=== PATIENT | female | born 1930 | race Caucasian/White ===

== ENCOUNTER 2017-04-01 09:48 | Inpatient (IN) | payer MEDICARE ==
[2017-04-01] VITALS (7 sets, daily range): BP systolic 158–174; BP diastolic 65–94; PULSE 56–67; RESP 16–18; TEMP 97.8–98.4; O2SAT 93–98
[~2017-04-01] VITALS: Ht 149.9 cm; Wt 67.5 kg
[~2017-04-01 09:48] MED LIST: ALBU17I INH; ALPR.25 PO; AMLO10 PO; ASPI81 PO; ATEN50 PO; ATRO17AE INH; CALC600T34 PO; CITA40 PO; CO Q 10 PO; FISH1000 PO; FLUTI110I INH; LORTA5 PO; LOSA50 PO; MECL25 PO; OMEP20TA39 PO; PRAV40 PO; TAB-TAB PO; VITA100T15 PO
[2017-04-01] MEDS ORDERED: OMEGCAP PO (10:26)
[2017-04-01] MEDS ORDERED: PRAV40TA2 PO (10:26)
[2017-04-01] MEDS ORDERED: ATEN50TA PO (10:26)
[2017-04-01] MEDS ORDERED: LOSA50TA PO (10:26)
[2017-04-01] MEDS ORDERED: MULTTAB67 PO (10:26)
[2017-04-01] MEDS ORDERED: VITA10002 PO (10:26)
[2017-04-01] MEDS ORDERED: CALC1TAB87 PO (10:26)
[2017-04-01] MEDS ORDERED: ASPI-516 CHEW (10:26)
[2017-04-01] MEDS ORDERED: AMLO10TA2 PO (10:26)
[2017-04-01] MEDS ORDERED: CO Q 10 PO (10:26)
[2017-04-01] MEDS ORDERED: ONDANSETRON HCL 4 MG/2 ML VIAL IVP ONE (10:45)
[2017-04-01 11:08] LABS: AUTOMATED NEUTROPHIL # 11.5 TH/MM3 (1.8-7.7); BASOPHIL # 0.1 TH/MM3 (0-0.2); BASOPHIL % 0.9 % (0.0-2.0); EOSINOPHIL # 0.1 TH/MM3 (0-0.4); EOSINOPHIL % 0.9 % (0.0-4.0); HEMATOCRIT 39.7 % (35.0-46.0); HEMO FLAGS DIFF FINAL; LYMPH % 16.7 % (9.0-44.0); LYMPHOCYTE # 2.5 TH/MM3 (1.0-4.8); MEAN CELL VOLUME 84.2 FL (80.0-100.0); MEAN CORPUSCULAR HGB CONC 33.3 % (32.0-36.0); MONO % 5.8 % (0.0-8.0); NEUT % 75.7 % (16.0-70.0); PLATELET COUNT 377 TH/MM3 (150-450); RED BLOOD COUNT 4.71 MIL/MM3 (4.00-5.30); RED CELL DISTRIBUTION WIDTH 12.7 % (11.6-17.2); WHITE BLOOD COUNT 15.1 TH/MM3 (4.0-11.0)
[2017-04-01 11:14] LABS: CHLORIDE 102 MEQ/L (98-107); SODIUM (NA) 138 MEQ/L (136-145)
[2017-04-01 11:15] LABS: BLOOD, URINE NEG (NEG); GLUCOSE,URINE NEG (NEG); KETONE, URINE NEG (NEG); NITRITE,URINE NEG (NEG)
--- NOTE | 2017-04-01 11:15 | PD ---
HPI Chief Complaint: GI Complaint Time Seen by Provider: 10:38 Travel History International Travel<30 days: No Contact w/Intl Traveler<30days: No Traveled to known affect area: No History of Present Illness HPI patient presents with complaints of right upper quadrant abdominal discomfort, nausea and lower back pain since approximately 3:30 this morning. Denies vomiting. Reports normal urination and stools. Back pain is chronic. Denies any recent travel or sick contacts. Denies any new foods. Reports a workup approximate one week ago with suspected UTI versus diverticulitis. Patient started medication however stopped it when she started to feel nauseous. These are similar symptoms to a week ago. PFSH Past Medical History Arthritis: Yes Asthma: No Autoimmune Disease: No Anxiety: Yes (takes celexa) Depression: No Heart Rhythm Problems: No Cancer: No Cardiovascular Problems: Yes High Cholesterol: Yes Chest Pain: No Congestive Heart Failure: No COPD: Yes Cerebrovascular Accident: No Diabetes: No Diminished Hearing: No Endocrine: No Gastrointestinal Disorders: Yes (HX OF COLITIS) GERD: No Glaucoma: No Genitourinary: No Hepatitis: No Hiatal Hernia: Yes (GERD) Hypertension: Yes Immune Disorder: No Kidney Stones: No Musculoskeletal: No Neurologic: No Psychiatric: No Reproductive: No Respiratory: No Migraines: No Myocardial Infarction: No Renal Failure: No Sleep Apnea: Yes Thyroid Disease: No Ulcer: No Influenza Vaccination: Yes ?: Not Past Surgical History Abdominal Surgery: No AICD: No Arteriovenous Shunt: No Cardiac Surgery: No Coronary Artery Bypass Graft: No Coronary Stent: Yes (1998--"THREE STENTS") Ear Surgery: No Endocrine Surgery: No Eye Surgery: Yes (CATARACT RIGHT and LEFT EYE) Genitourinary Surgery: Yes (BLADDER SUSP.) Gynecologic Surgery: Yes (TAHBSO, D & C) Hysterectomy: Yes (1993--COMPLETE) Insulin Pump: No Joint Replacement: No Oral Surgery: Yes (T & A) Pacemaker: No Thoracic Surgery: No Tonsillectomy: Yes (" CHILD") Other Surgery: Yes ("D & C,IN THE 50'S") Family History Family Myocardial Infarction: Yes Social History Alcohol Use: Yes (RARELY) Tobacco Use: No Substance Use: No Allergies-Medications (Allergen,Severity, Reaction): Coded Allergies: No Known Allergies (Verified Allergy, Unknown, 04/01/17) Reported Meds & Prescriptions Reported Meds & Active Scripts Active Reported [Co Q 10] 1 Tab PO DAILY Pravastatin 40 Mg Tab 40 Mg PO DAILY [place]-3 Fish Oil/Vitamin (Fish Oil-Cholecalciferol) 1,000-1,000 Mg Cap 1 Cap PO DAILY Multiple Vitamin 1 Tab 1 Tab PO DAILY Losartan (Losartan Potassium) 50 Mg Tab 50 Mg PO BID Vitamin B-12 (Cyanocobalamin) 1,000 Mcg Tab 1,000 Mcg PO DAILY Calcium 600 with Vitamin D (Calcium Carbonate-Cholecalciferol) 600-400 mg-Unit Tab 1 Tab PO DAILY Atenolol 50 Mg Tab 50 Mg PO DAILY Aspirin 81 Mg Chew 81 Mg CHEW DAILY Amlodipine (Amlodipine Besylate) 10 Mg Tab 10 Mg PO DAILY Review of Systems General / Constitutional: No: Fever Eyes: No: Visual changes HENT: No: Headaches Cardiovascular: No: Chest Pain or Discomfort Respiratory: No: Shortness of Breath Gastrointestinal: Positive: Nausea, Abdominal Pain Genitourinary: No: Dysuria Musculoskeletal: Positive: Pain Skin: No Rash Neurologic: No: Weakness Psychiatric: No: Depression Endocrine: No: Polydipsia Hematologic/Lymphatic: No: Easy Bruising Physical Exam Narrative GENERAL: Well-nourished, well-developed patient. SKIN: Focused skin assessment warm/dry. HEAD: Normocephalic. EYES: No scleral icterus. No injection or drainage. NECK: Supple, trachea midline. No JVD or lymphadenopathy. CARDIOVASCULAR: Regular rate and rhythm without murmurs, gallops, or rubs. RESPIRATORY: Breath sounds equal bilaterally. No accessory muscle use. GASTROINTESTINAL: Abdomen soft, diffusely tender right upper quadrant, nondistended. MUSCULOSKELETAL: No cyanosis, or edema. BACK: Nontender without obvious deformity. No CVA tenderness. Data Data Last Documented VS Vital Signs Date Time Temp Pulse Resp B/P (MAP) Pulse Ox O2 Delivery O2 Flow Rate FiO2 04/01/17 12:47 58 18 174/65 (101) 98 Room Air 04/01/17 09:56 97.9 Orders Orders Complete Blood Count With Diff (04/01/17 10:38) Comprehensive Metabolic Panel (04/01/17 10:38) Lipase (04/01/17 10:38) Urinalysis - C+S If Indicated (04/01/17 10:38) Ct Abd/Pel W Iv Contrast(Rout) (04/01/17 10:38) Iv Access Insert/Monitor (04/01/17 10:38) Ecg Monitoring (04/01/17 10:38) Oximetry (04/01/17 10:38) Ondansetron Inj (Zofran Inj) (04/01/17 10:45) Sodium Chloride 0.9% Flush (Ns Flush) (04/01/17 10:45) Urine Culture (04/01/17 11:05) Hydromorphone Pf Inj (Dilaudid Pf Inj) (04/01/17 12:00) Ondansetron Inj (Zofran Inj) (04/01/17 12:00) Iodixanol 320 Inj (Rad Ct) (Visipaque 32 (04/01/17 12:16) Hydromorphone Pf Inj (Dilaudid Pf Inj) (04/01/17 13:00) Hydromorphone Pf Inj (Dilaudid Pf Inj) (04/01/17 13:00) Npo After Midnight W/ Po Meds (04/01/17 Lunch) Labs Laboratory Tests Test 04/01/17 10:35 04/01/17 11:05 White Blood Count 15.1 TH/MM3 Red Blood Count 4.71 MIL/MM3 Hemoglobin 13.2 GM/DL Hematocrit 39.7 % Mean Corpuscular Volume 84.2 FL Mean Corpuscular Hemoglobin 28.0 PG Mean Corpuscular Hemoglobin Concent 33.3 % Red Cell Distribution Width 12.7 % Platelet Count 377 TH/MM3 Mean Platelet Volume 9.3 FL Neutrophils (%) (Auto) 75.7 % Lymphocytes (%) (Auto) 16.7 % Monocytes (%) (Auto) 5.8 % Eosinophils (%) (Auto) 0.9 % Basophils (%) (Auto) 0.9 % Neutrophils # (Auto) 11.5 TH/MM3 Lymphocytes # (Auto) 2.5 TH/MM3 Monocytes # (Auto) 0.9 TH/MM3 Eosinophils # (Auto) 0.1 TH/MM3 Basophils # (Auto) 0.1 TH/MM3 CBC Comment DIFF FINAL Differential Comment Blood Urea Nitrogen 28 MG/DL Creatinine 1.50 MG/DL Random Glucose 121 MG/DL Total Protein 8.3 GM/DL Albumin 3.4 GM/DL Calcium Level 9.3 MG/DL Alkaline Phosphatase 82 U/L Aspartate Amino Transf (AST/SGOT) 24 U/L Alanine Aminotransferase (ALT/SGPT) 22 U/L Total Bilirubin 0.5 MG/DL Sodium Level 138 MEQ/L Potassium Level 4.4 MEQ/L Chloride Level 102 MEQ/L Carbon Dioxide Level 25.7 MEQ/L Anion Gap 10 MEQ/L Estimat Glomerular Filtration Rate 33 ML/MIN Lipase 327 U/L Urine Collection Type CLEAN CATCH Urine Color YELLOW Urine Turbidity CLEAR Urine pH 6.0 Urine Specific [place] 1.016 Urine Protein TRACE mg/dL Urine Glucose (UA) NEG mg/dL Urine Ketones NEG mg/dL Urine Occult Blood NEG Urine Nitrite NEG Urine Bilirubin NEG Urine Leukocyte Esterase TRACE Urine RBC 0-3 /hpf Urine WBC 9-14 /hpf Urine Squamous Epithelial Cells 0-5 /hpf Microscopic Urinalysis Comment CULTURE INDICATED MDM Medical Decision Making Medical Screen Exam Complete: Yes Emergency Medical Condition: Yes Differential Diagnosis UTI, cystitis, nephritis, colitis, chronic back pain Narrative Course Last 72 hours Impressions Abdomen/Pelvis CT 04/01/17 1038 Signed Impressions: Service Date/Time: Saturday, April 01, 2017 12:10 - CONCLUSION: 1. 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 The latter causes high grade obstruction. 2. Tiny nonobstructing stone of the left kidney. 3. Scattered subcentimeter faint hypodensities of the liver, too small to fully characterize. 4. The fat-containing bilateral inguinal hernias. 5. Atherosclerosis of the abdominal aorta and iliac arteries. No aneurysm. Binu Clark MD Assessment and plan discussed with patient and daughter at bedside. Physician Communication Physician Communication Spoke with Dr. Dejesus/urology who is in agreement for admission and possible procedure tomorrow at the [facility] Spoke with Dr. Villalba who plans on seeing the patient prior to transfer to the [facility] Spoke with Dr. Ling who is in agreement will admit Diagnosis Primary Impression: Intractable pain Additional Impressions: Hydroureter Hydronephrosis Qualified Codes: N13.1 - Hydronephrosis with ureteral stricture, not elsewhere classified Bladder mass Ureteral mass Dave Prado MD Apr 01, 2017 11:15
[2017-04-01 11:17] LABS: ANION GAP 10 MEQ/L (5-15); BICARBONATE 25.7 MEQ/L (21.0-32.0); BLOOD UREA NITROGEN 28 MG/DL (7-18)
[2017-04-01 11:20] LABS: ALT (GPT) 22 U/L (10-53); AST (GOT) 24 U/L (15-37); GLOMERULAR FILTRATION RATE 33 ML/MIN (>89)
[2017-04-01 11:20] LABS: METHOD OF COLLECTION CLEAN CATCH
[2017-04-01 11:21] LABS: URINE COLOR YELLOW (YELLW/STRAW)
[2017-04-01 11:22] LABS: TOTAL BILIRUBIN ADULT 0.5 MG/DL (0.2-1.0)
[2017-04-01 11:22] LABS: COMMENT (UR) CULTURE INDICATED; CULTURE IF INDICATED CULTURE INDICATED; RBC, URINE 0-3 /hpf (0-3); SQUAMOUS EPITHELIAL CELL URINE 0-5 /hpf (0-5)
[2017-04-01 11:23] LABS: ALKALINE PHOSPHATASE 82 U/L (45-117)
[2017-04-01 11:25] LABS: POTASSIUM 4.4 MEQ/L (3.5-5.1)
[2017-04-01] MEDS ORDERED: HYDROmorphone HCL PF 0.5 MG/0.5 ML SYRINGE IV PUSH ONE (12:00)
[2017-04-01] MEDS ORDERED: ONDANSETRON HCL 4 MG/2 ML VIAL IV PUSH ONE (12:00)
[2017-04-01] MEDS ORDERED: IODIXANOL 320 MG/ML 10 ML VIAL (for Rad CT) IVCONTRAST ONE (12:16)
--- NOTE | 2017-04-01 12:34 | RADRPT ---
EXAM DATE/TIME: 04/01/2017 12:10 [place] COMPARISON: No previous studies available for comparison. INDICATIONS : Right sided abdominal pain with nausea. IV CONTRAST: 50 cc Visipaque (iodixanol) IV ORAL CONTRAST: No oral contrast ingested. RADIATION DOSE: 10.74 CTDIvol (mGy) MEDICAL HISTORY : Cardiovascular disease. Gastroesophageal reflux disease. Hypertension.Colitis. SURGICAL HISTORY : Hysterectomy. Coronary artery stent. ENCOUNTER: Initial ACUITY: 3 days PAIN SCALE: 5/10 LOCATION: Right abdomen TECHNIQUE: Volumetric scanning of the abdomen and pelvis was performed. Using automated exposure control and ad justment of the mA and/or kV according to patient size, radiation dose was kept as low as reasonably achievable to obtain optimal diagnostic quality images. DICOM format image data is available electro nically for review and comparison. FINDINGS: LOWER LUNGS: The visualized lower lungs are clear. LIVER: Faint tiny hypodensities measuring up to 6 mm in size are noted. SPLEEN: Normal size without lesion. PANCREAS: Within normal limits. KIDNEYS: There is intermediate density mass filling the distal 5 cm of the ureter, sparing the ureterovesical junction. A separate mass is seen in the anterior aspect of the urinary bladder measuring 2.9 cm. The re is severe right-sided hydronephrosis and hydroureter. A 2 mm nonobstructing stone is seen of the m id zone of the left kidney. There is no hydronephrosis, hydroureter or perceptible urothelial lesion on the left. ADRENAL GLANDS: Within normal limits. VASCULAR: There is aortoiliac atherosclerosis. No aneurysm. BOWEL/MESENTERY: The stomach, small bowel, and colon demonstrate no acute abnormality. There is no free intraperitone al air or fluid. ABDOMINAL WALL: Within normal limits. RETROPERITONEUM: There is no lymphadenopathy. BLADDER: No wall thickening or mass. REPRODUCTIVE: Previous hysterectomy. INGUINAL: Bilateral fat-containing inguinal hernias are present. MUSCULOSKELETAL: Within normal limits for patient age. CONCLUSION: 1. 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 The latt er causes high grade obstruction. 2. Tiny nonobstructing stone of the left kidney. 3. Scattered subcentimeter faint hypodensities of the liver, too small to fully characterize. 4. The fat-containing bilateral inguinal hernias. 5. Atherosclerosis of the abdominal aorta and iliac arteries. No aneurysm. Binu Clark MD on April 01, 2017 at 12:27 Board Certified Radiologist. This report was verified electronically.
[2017-04-01] MEDS ORDERED: HYDROmorphone HCL PF 2 MG/ML VIAL IV PUSH ONE (13:00)
[2017-04-01] MEDS ORDERED: HYDROmorphone HCL PF 1 MG/ML VIAL IV PUSH ONE (13:00)
[2017-04-01] MEDS ORDERED: ACETAMINOPHEN 325 MG TAB PO PRN (13:45)
[2017-04-01] MEDS ORDERED: ONDANSETRON HCL 4 MG/2 ML VIAL IV PUSH PRN ×2 (13:45→14:00)
--- NOTE | 2017-04-01 13:49 | HHI.HP ---
HPI Service [facility] Primary Care Physician Madhu Villalba MD, PhD Admission Diagnosis intractable pain with multifocal urothelial neoplasm Chief Complaint: Abd pain, nausea, lower back pain Travel History International Travel<30 Days: No Contact w/Intl Traveler <30 Da: No Traveled to Known Affected Are: No History of Present Illness 87 year-old female well-known to me from outpatient follow-up who has history of hypertension hyperlipidemia, major depression, anxiety and distant history of recurrent UTIs presents with right flank and right lower abdominal pain with radiation to her right lower back. Patient reports she's had chronic low back pain for years but the abdominal pain onset was around 4 or 5 AM this morning. She noted a cramping sensation. She had several episodes of dry heaving but no vomiting. She denies hematochezia or melena. Denies any diarrhea. She notes that she does have urinary frequency which is not uncommon for her. CT scan abdomen and pelvis revealed distant right ureteral mass with some resultant hydronephrosis. It is noted that she had negative cystoscopy and cytology per outpatient urology note back in 2011 as a part of workup for recurrent UTIs. She denies any indira hematuria. She also had CT abdomen and pelvis done in 2014 which was negative for any abnormality. Also noted that patient was seen in outpatient clinic March 19 and diagnosed with possible diverticulitis. She was placed on Augmentin but only took 4 doses due to "medicine upsetting her stomach". The pain resolved after the 4 doses of antibiotic. ER physician has communicated with the urologist site promotion agent who requested patient be transferred to the main hospital for planned procedure tomorrow morning. Review of Systems Constitutional: COMPLAINS OF: Fatigue, DENIES: Diaphoretic episodes, Fever, Weight gain, Weight loss, Chills, Dizziness, Change in appetite, Night Sweats Eyes: DENIES: Blurred vision, Diplopia, Eye inflammation, Eye pain, Vision loss , Photosensitivity, Double Vision Ears, nose, mouth, throat: COMPLAINS OF: Hearing loss, DENIES: Tinnitus, Vertigo, Nasal discharge, Oral lesions, Throat pain, Hoarseness, Ear Pain, Running Nose, Epistaxis, Sinus Pain, Toothache, Odynophagia Respiratory: DENIES: Apneas, Cough, Snoring, Wheezing, Hemoptysis, Sputum production, Shortness of breath Cardiovascular: DENIES: Chest pain, Palpitations, Syncope, Dyspnea on Exertion , PND, Lower Extremity Edema, Orthopnea, Claudication Gastrointestinal: COMPLAINS OF: Abdominal pain, GERD, Nausea, DENIES: Black stools, Bloody stools, BRB per rectum, Constipation, Diarrhea, Reflux, Vomiting , Difficulty Swallowing, Anorexia, See HPI Musculoskeletal: COMPLAINS OF: Joint pain, Back pain Integumentary: DENIES: Abnormal pigmentation, Pruritus, Rash, Nail changes, Breast masses, Breast skin changes, Nipple discharge Hematologic/lymphatic: COMPLAINS OF: Bruising Immunologic/allergic: DENIES: Eczema, Urticaria Neurologic: DENIES: Abnormal gait, Headache, Localized weakness, Paresthesias, Seizures, Speech Problems, Tremor, Poor Balance Psychiatric: COMPLAINS OF: Anxiety, Depression, DENIES: Confusion, Mood changes , Hallucinations, Agitation, Suicidal Ideation, Homicidal Ideation, Delusions, History of Bipolar, History of Schizophrenia Past Family Social History Past Medical History Aortic atherosclerosis CAD COPD Lumbar DDD HTN HYperlipidemia GERD Purpura Major depression Anxiety Recurrent UTIs Past Surgical History Bladder suspension surgery 2002 Cataract surgery D&C LESI PTCA 1998 T&A KELLI 1998 Reported Medications Co Q 10 100mg 1 Tab PO DAILY [place]-3 Fish Oil/Vitamin (Fish Oil-Cholecalciferol) 1,000-1,000 Mg Cap 1 Cap PO DAILY Multiple Vitamin 1 Tab 1 Tab PO DAILY Losartan (Losartan Potassium) 50 Mg Tab 50 Mg PO daily Vitamin B-12 (Cyanocobalamin) 1,000 Mcg Tab 1,000 Mcg PO DAILY Calcium 600 with Vitamin D (Calcium Carbonate-Cholecalciferol) 600-400 mg-Unit Tab 1 Tab PO DAILY Atenolol 50 Mg Tab 50 Mg PO DAILY Aspirin 81 Mg Chew 81 Mg CHEW DAILY Amlodipine (Amlodipine Besylate) 10 Mg Tab 10 Mg PO DAILY Cranberry tablets 250mg two daily Memantine 10mg daily vit D 1000 units/d Allergies: Coded Allergies: No Known Allergies (Verified Allergy, Unknown, 04/01/17) Family History Mother had [place] Father had AAA Social History No tobacco since 1973, 1ppd or less for approximately 25 yrs prior Occasional EtOH Lives alone, , good family support in area Retired [employer] teacher Physical Exam Vital Signs Vital Signs Date Time Temp Pulse Resp B/P (MAP) Pulse Ox O2 Delivery O2 Flow Rate FiO2 04/01/17 12:47 58 18 174/65 (101) 98 Room Air 04/01/17 12:43 18 04/01/17 11:34 18 97 Room Air 04/01/17 09:56 97.9 56 16 159/94 (115) 96 Physical Exam GENERAL: This is a well-nourished, well-developed patient, in no apparent distress. Obese, SKIN: No rashes, ecchymoses or lesions. Cool and dry. HEAD: Atraumatic. Normocephalic. No temporal or scalp tenderness. EYES: Pupils equal round and reactive. Extraocular motions intact. No scleral icterus. No injection or drainage. ENT: Nose without bleeding, purulent drainage or septal hematoma. Airway patent. NECK: Trachea midline. No JVD or lymphadenopathy. Supple, nontender, no meningeal signs. CARDIOVASCULAR: Regular rate and rhythm without murmurs, gallops, or rubs. RESPIRATORY: Clear to auscultation. Breath sounds equal bilaterally. No wheezes , rales, or rhonchi. GASTROINTESTINAL: Abdomen soft, nondistended. Mild tenderness to palpation in the right lower quadrant and right flank. No hepato-splenomegaly, or palpable masses. No guarding. MUSCULOSKELETAL: Extremities without clubbing, cyanosis, or edema. No joint tenderness, effusion, or edema noted. No calf tenderness. NEUROLOGICAL: Awake and alert. Cranial nerves II through XII intact. Motor and sensory grossly within normal limits. Five out of 5 muscle strength in all muscle groups. Normal speech. Laboratory Laboratory Tests Test 04/01/17 10:35 04/01/17 11:05 White Blood Count 15.1 Red Blood Count 4.71 Hemoglobin 13.2 Hematocrit 39.7 Mean Corpuscular Volume 84.2 Mean Corpuscular Hemoglobin 28.0 Mean Corpuscular Hemoglobin Concent 33.3 Red Cell Distribution Width 12.7 Platelet Count 377 Mean Platelet Volume 9.3 Neutrophils (%) (Auto) 75.7 Lymphocytes (%) (Auto) 16.7 Monocytes (%) (Auto) 5.8 Eosinophils (%) (Auto) 0.9 Basophils (%) (Auto) 0.9 Neutrophils # (Auto) 11.5 Lymphocytes # (Auto) 2.5 Monocytes # (Auto) 0.9 Eosinophils # (Auto) 0.1 Basophils # (Auto) 0.1 CBC Comment DIFF FINAL Differential Comment Blood Urea Nitrogen 28 Creatinine 1.50 Random Glucose 121 Total Protein 8.3 Albumin 3.4 Calcium Level 9.3 Alkaline Phosphatase 82 Aspartate Amino Transf (AST/SGOT) 24 Alanine Aminotransferase (ALT/SGPT) 22 Total Bilirubin 0.5 Sodium Level 138 Potassium Level 4.4 Chloride Level 102 Carbon Dioxide Level 25.7 Anion Gap 10 Estimat Glomerular Filtration Rate 33 Lipase 327 Urine Collection Type CLEAN CATCH Urine Color YELLOW Urine Turbidity CLEAR Urine pH 6.0 Urine Specific [place] 1.016 Urine Protein TRACE Urine Glucose (UA) NEG Urine Ketones NEG Urine Occult Blood NEG Urine Nitrite NEG Urine Bilirubin NEG Urine Leukocyte Esterase TRACE Urine RBC 0-3 Urine WBC 9-14 Urine Squamous Epithelial Cells 0-5 Microscopic Urinalysis Comment CULTURE INDICATED Date/Time Source Procedure Growth Status 04/01/17 11:05 Urine Clean Catch Urine Culture Pending Received Result Diagram: 04/01/17 1035 04/01/17 1035 Imaging Last 72 hours Impressions Abdomen/Pelvis CT 04/01/17 1038 Signed Impressions: Service Date/Time: Saturday, April 01, 2017 12:10 - CONCLUSION: 1. 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 The latter causes high grade obstruction. 2. Tiny nonobstructing stone of the left kidney. 3. Scattered subcentimeter faint hypodensities of the liver, too small to fully characterize. 4. The fat-containing bilateral inguinal hernias. 5. Atherosclerosis of the abdominal aorta and iliac arteries. No aneurysm. MD Felicitas Izquierdoi VTE Risk Assessment Caprini VTE Risk Assessment: Mod/High Risk (score >= 2) Caprini Risk Assessment Model Point Value = 1 Point Value = 2 Point Value = 3 Point Value = 5 Age 41-60 Minor surgery BMI > 25 kg/m2 Swollen legs Varicose veins or History of unexplained or recurrent spontaneous Oral contraceptives or hormone replacement Sepsis (< 1 month) Serious lung disease, including pneumonia (< 1 month) Abnormal pulmonary function Acute myocardial infarction Congestive heart failure (< 1 month) History of inflammatory bowel disease Medical patient at bed rest Age 61-74 Arthroscopic surgery Major open surgery (> 45 min) Laparoscopic surgery (> 45 min) Malignancy Confined to bed (> 72 hours) Immobilizing plaster cast Central venous access Age >= 75 History of VTE Family history of VTE Factor V Leiden Prothrombin [id number] Lupus anticoagulant Anticardiolipin antibodies Elevated serum homocysteine Heparin-induced thrombocytopenia Other congenital or acquired thrombophilia Stroke (< 1 month) Elective arthroplasty Hip, pelvis, or leg fracture Acute spinal cord injury (< 1 month) Prophylaxis Regimen Total Risk Factor Score Risk Level Prophylaxis Regimen 0-1 Low Early ambulation 2 Moderate Order ONE of the following: *Sequential Compression Device (SCD) *Heparin 5000 units SQ BID 3-4 Higher Order ONE of the following medications: *Heparin 5000 units SQ TID *Enoxaparin/Lovenox 40 mg SQ daily (WT < 150 kg, CrCl > 30 mL/min) *Enoxaparin/Lovenox 30 mg SQ daily (WT < 150 kg, CrCl > 10-29 mL/min) *Enoxaparin/Lovenox 30 mg SQ BID (WT < 150 kg, CrCl > 30 mL/min) AND/OR *Sequential Compression Device (SCD) 5 or more Highest Order ONE of the following medications: *Heparin 5000 units SQ TID (Preferred with Epidurals) *Enoxaparin/Lovenox 40 mg SQ daily (WT < 150 kg, CrCl > 30 mL/min) *Enoxaparin/Lovenox 30 mg SQ daily (WT < 150 kg, CrCl > 10-29 mL/min) *Enoxaparin/Lovenox 30 mg SQ BID (WT < 150 kg, CrCl > 30 mL/min) AND *Sequential Compression Device (SCD) Assessment and Plan Problem List: (1) Ureteral mass ICD Codes: N28.9 - Disorder of kidney and ureter, unspecified Status: Acute Plan: We'll transfer to [place] per urology request. Likely will have cystoscopy ureteroscopy tomorrow morning with possible stenting and biopsy. Patient understands possible underlying malignancy. (2) Hydroureter ICD Codes: N13.4 - Hydroureter Status: Acute Plan: As above. (3) Bladder mass ICD Codes: N32.89 - Other specified disorders of bladder Status: Acute (4) Hypertension ICD Codes: I10 - Hypertension Status: Chronic Plan: Continue home medication. (5) Hyperlipidemia ICD Codes: E78.5 - Hyperlipidemia, unspecified Status: Chronic Plan: Follow as outpatient. (6) GERD (gastroesophageal reflux disease) ICD Codes: K21.9 - Gastro-esophageal reflux disease without esophagitis Status: Chronic Plan: PPI. (7) CAD (coronary artery disease) ICD Codes: I25.10 - Atherosclerotic heart disease of lime coronary artery without angina pectoris Status: Chronic Plan: No current symptoms. (8) COPD (chronic obstructive pulmonary disease) ICD Codes: J44.9 - Chronic obstructive pulmonary disease Status: Chronic Plan: Quite stable. Code Status Full Discussed Condition With Patient and her daughter, her granddaughter and ER provider Physician Certification 2 Midnight Certification Type: Admission for Inpatient Services Order for Inpatient Services The services are ordered in accordance with Medicare regulations or non- Medicare payer requirements, as applicable. In the case of services not specified as inpatient-only, they are appropriately provided as inpatient services in accordance with the 2-midnight benchmark. Estimated LOS (days): 3 days is the estimated time the patient will need to remain in the hospital, assuming treatment plan goals are met and no additional complications. Post-Hospital Plan: Not yet determined Problem Qualifiers (1) Hypertension: Qualified Codes: I10 - Essential (primary) hypertension Madhu Villalba MD PhD Apr 01, 2017 13:49
[2017-04-01] MEDS ORDERED: NAME10TA PO (13:53)
--- NOTE | 2017-04-01 13:56 | HHI.HP ---
HPI Service [facility] Primary Care Physician Madhu Villalba MD, PhD Admission Diagnosis intractable pain with multifocal urothelial neoplasm Chief Complaint: Abdominal pain, nausea Travel History International Travel<30 Days: No Contact w/Intl Traveler <30 Da: No Traveled to Known Affected Are: No Past Family Social History Past Medical History Anxiety Aortic stenosis Benign positional vertigo CAD CKD, stage 2 COPD GERD HTN Hyperlipidemia Memory deficits Nonthrombocytopenic purpura Peripheral neuropathy Recurrent major depressive disorder Lumbar DDD Past Surgical History Bladder surgery Cataract surgery D&C PTCA with stent x 2 Tonsillectomy KELLI Hx of cystoscopy in 2010 Reported Medications [Co Q 10] 1 Tab PO DAILY Pravastatin 40 Mg PO DAILY Rosie-3 Fish Oil/Vitamin (Fish Oil-Cholecalciferol) 1,000-1,000 Mg Cap 1 Cap PO DAILY Multiple Vitamin 1 Tab PO DAILY Losartan 50 Mg PO BID Vitamin B-12 1,000 Mcg PO DAILY Calcium 600 with Vitamin D 600-400 mg-Unit PO DAILY Atenolol 50 Mg PO DAILY Aspirin 81 Mg CHEW DAILY Amlodipine 10 Mg PO DAILY Allergies: Coded Allergies: No Known Allergies (Verified Allergy, Unknown, 04/01/17) Family History Mother at age 56 from AMI/CAD Social History No reported alcohol, tobacco or illicit drug use Physical Exam Vital Signs Vital Signs Date Time Temp Pulse Resp B/P (MAP) Pulse Ox O2 Delivery O2 Flow Rate FiO2 04/01/17 12:47 58 18 174/65 (101) 98 Room Air 04/01/17 12:43 18 04/01/17 11:34 18 97 Room Air 04/01/17 09:56 97.9 56 16 159/94 (115) 96 Physical Exam GENERAL: This is a well-nourished, well-developed patient, in no apparent distress. HEENT: Atraumatic. Normocephalic. No temporal or scalp tenderness. No scleral icterus. Airway patent. NECK: Trachea midline, supple, nontender. CARDIO: Regular. RESP: CTA bilaterally. No wheezes, rales, or rhonchi. ABD: +BS, soft, non-tender, nondistended. EXT: Extremities without clubbing, cyanosis, or edema. NEURO: Awake and alert. Motor and sensory grossly within normal limits. Normal speech. Laboratory Laboratory Tests Test 04/01/17 10:35 04/01/17 11:05 White Blood Count 15.1 Red Blood Count 4.71 Hemoglobin 13.2 Hematocrit 39.7 Mean Corpuscular Volume 84.2 Mean Corpuscular Hemoglobin 28.0 Mean Corpuscular Hemoglobin Concent 33.3 Red Cell Distribution Width 12.7 Platelet Count 377 Mean Platelet Volume 9.3 Neutrophils (%) (Auto) 75.7 Lymphocytes (%) (Auto) 16.7 Monocytes (%) (Auto) 5.8 Eosinophils (%) (Auto) 0.9 Basophils (%) (Auto) 0.9 Neutrophils # (Auto) 11.5 Lymphocytes # (Auto) 2.5 Monocytes # (Auto) 0.9 Eosinophils # (Auto) 0.1 Basophils # (Auto) 0.1 CBC Comment DIFF FINAL Differential Comment Blood Urea Nitrogen 28 Creatinine 1.50 Random Glucose 121 Total Protein 8.3 Albumin 3.4 Calcium Level 9.3 Alkaline Phosphatase 82 Aspartate Amino Transf (AST/SGOT) 24 Alanine Aminotransferase (ALT/SGPT) 22 Total Bilirubin 0.5 Sodium Level 138 Potassium Level 4.4 Chloride Level 102 Carbon Dioxide Level 25.7 Anion Gap 10 Estimat Glomerular Filtration Rate 33 Lipase 327 Urine Collection Type CLEAN CATCH Urine Color YELLOW Urine Turbidity CLEAR Urine pH 6.0 Urine Specific [place] 1.016 Urine Protein TRACE Urine Glucose (UA) NEG Urine Ketones NEG Urine Occult Blood NEG Urine Nitrite NEG Urine Bilirubin NEG Urine Leukocyte Esterase TRACE Urine RBC 0-3 Urine WBC 9-14 Urine Squamous Epithelial Cells 0-5 Microscopic Urinalysis Comment CULTURE INDICATED Date/Time Source Procedure Growth Status 04/01/17 11:05 Urine Clean Catch Urine Culture Pending Received Result Diagram: 04/01/17 1035 04/01/17 1035 Imaging Last Impressions Abdomen/Pelvis CT 04/01/17 1038 Signed Impressions: Service Date/Time: Saturday, April 01, 2017 12:10 - CONCLUSION: 1. 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 The latter causes high grade obstruction. 2. Tiny nonobstructing stone of the left kidney. 3. Scattered subcentimeter faint hypodensities of the liver, too small to fully characterize. 4. The fat-containing bilateral inguinal hernias. 5. Atherosclerosis of the abdominal aorta and iliac arteries. No aneurysm. Binu Clark MD Septic Shock Reassessment Heart: Regular rate and rhythm Lungs: Clear Skin: Warm Caprini VTE Risk Assessment Caprini Risk Assessment Model Point Value = 1 Point Value = 2 Point Value = 3 Point Value = 5 Age 41-60 Minor surgery BMI > 25 kg/m2 Swollen legs Varicose veins or History of unexplained or recurrent spontaneous Oral contraceptives or hormone replacement Sepsis (< 1 month) Serious lung disease, including pneumonia (< 1 month) Abnormal pulmonary function Acute myocardial infarction Congestive heart failure (< 1 month) History of inflammatory bowel disease Medical patient at bed rest Age 61-74 Arthroscopic surgery Major open surgery (> 45 min) Laparoscopic surgery (> 45 min) Malignancy Confined to bed (> 72 hours) Immobilizing plaster cast Central venous access Age >= 75 History of VTE Family history of VTE Factor V Leiden Prothrombin [id number] Lupus anticoagulant Anticardiolipin antibodies Elevated serum homocysteine Heparin-induced thrombocytopenia Other congenital or acquired thrombophilia Stroke (< 1 month) Elective arthroplasty Hip, pelvis, or leg fracture Acute spinal cord injury (< 1 month) Prophylaxis Regimen Total Risk Factor Score Risk Level Prophylaxis Regimen 0-1 Low Early ambulation 2 Moderate Order ONE of the following: *Sequential Compression Device (SCD) *Heparin 5000 units SQ BID 3-4 Higher Order ONE of the following medications: *Heparin 5000 units SQ TID *Enoxaparin/Lovenox 40 mg SQ daily (WT < 150 kg, CrCl > 30 mL/min) *Enoxaparin/Lovenox 30 mg SQ daily (WT < 150 kg, CrCl > 10-29 mL/min) *Enoxaparin/Lovenox 30 mg SQ BID (WT < 150 kg, CrCl > 30 mL/min) AND/OR *Sequential Compression Device (SCD) 5 or more Highest Order ONE of the following medications: *Heparin 5000 units SQ TID (Preferred with Epidurals) *Enoxaparin/Lovenox 40 mg SQ daily (WT < 150 kg, CrCl > 30 mL/min) *Enoxaparin/Lovenox 30 mg SQ daily (WT < 150 kg, CrCl > 10-29 mL/min) *Enoxaparin/Lovenox 30 mg SQ BID (WT < 150 kg, CrCl > 30 mL/min) AND *Sequential Compression Device (SCD) Physician Certification Order for Inpatient Services The services are ordered in accordance with Medicare regulations or non- Medicare payer requirements, as applicable. In the case of services not specified as inpatient-only, they are appropriately provided as inpatient services in accordance with the 2-midnight benchmark. days is the estimated time the patient will need to remain in the hospital, assuming treatment plan goals are met and no additional complications. Edilma Castro Apr 01, 2017 13:56
[2017-04-01] MEDS ORDERED: MORPHINE SULFATE 2 MG/ML INJ IM PRN (14:00)
[2017-04-01] MEDS: SODIUM CHLOR 0.9% 1000 ML INJ 1,000 ML IV SCH ×2 (14:21→18:11)
[2017-04-01] MEDS ORDERED: MORPHINE SULFATE 2 MG/ML INJ IV PUSH PRN (14:30)
[2017-04-01] MEDS ORDERED: LORazepam 0.5 MG TAB PO PRN (14:30)
[2017-04-01] MEDS: HYDROmorphone HCL PF 1 MG/ML VIAL IV PUSH PRN (18:12)
[2017-04-01] MEDS: SODIUM CHLORIDE 0.9% FLUSH 10 ML FLUSH IV FLUSH PRN (18:12)
[2017-04-01] MEDS ORDERED: LACTATED RINGER'S 1000 ML IV PRN (23:15)
[2017-04-01] MEDS ORDERED: CHLORHEXIDINE GLUCONATE 2 % 1 PACK (2 CLOTHS) TOPICAL PRN (23:15)
[2017-04-01] MEDS ORDERED: POVIDONE IODINE 5% (ANTISEPSIS KIT) 4 APPLICATIONS EACH NARE PRN (23:15)
[2017-04-02] VITALS (9 sets, daily range): BP systolic 140–169; BP diastolic 63–81; PULSE 57–75; RESP 16–20; TEMP 98.3–99.4; O2SAT 92–96
[2017-04-02] MEDS: SODIUM CHLOR 0.9% 1000 ML INJ 1,000 ML IV SCH ×2 (05:59→20:00)
[2017-04-02 06:40] LABS: BASOPHIL % 0.3 % (0.0-2.0); EOSINOPHIL % 0.1 % (0.0-4.0); HEMATOCRIT 38.6 % (35.0-46.0); HEMO FLAGS DIFF FINAL; LYMPH % 13.6 % (9.0-44.0); LYMPHOCYTE # 2.2 TH/MM3 (1.0-4.8); MEAN CORPUSCULAR HEMOGLOBIN 28.3 PG (27.0-34.0); MEAN CORPUSCULAR HGB CONC 32.9 % (32.0-36.0); MONO % 7.1 % (0.0-8.0); NEUT % 78.9 % (16.0-70.0); PLATELET COUNT 333 TH/MM3 (150-450); RED BLOOD COUNT 4.49 MIL/MM3 (4.00-5.30); RED CELL DISTRIBUTION WIDTH 13.6 % (11.6-17.2); WHITE BLOOD COUNT 16.5 TH/MM3 (4.0-11.0)
[2017-04-02 07:12] LABS: ANION GAP 8 MEQ/L (5-15); AST (GOT) 13 U/L (15-37); BICARBONATE 26.4 MEQ/L (21.0-32.0); BLOOD UREA NITROGEN 25 MG/DL (7-18); CHLORIDE 101 MEQ/L (98-107); GLOMERULAR FILTRATION RATE 39 ML/MIN (>89); POTASSIUM 3.7 MEQ/L (3.5-5.1); SODIUM (NA) 135 MEQ/L (136-145)
[2017-04-02 07:14] LABS: ALT (GPT) 18 U/L (10-53)
[2017-04-02 07:15] LABS: ALKALINE PHOSPHATASE 82 U/L (45-117); TOTAL BILIRUBIN ADULT 0.4 MG/DL (0.2-1.0)
[2017-04-02] MEDS: MEMANTINE HCL 10 MG TAB PO SCH (08:04)
[2017-04-02] MEDS: ATENOLOL 50 MG TAB PO SCH (08:04)
[2017-04-02] MEDS: HYDROmorphone HCL PF 1 MG/ML VIAL IV PUSH PRN ×2 (08:19→20:33)
[2017-04-02] MEDS: PRAVASTATIN SOD 40 MG TAB PO SCH (09:00)
[2017-04-02] MEDS: PANTOPRAZOLE SOD 40 MG DELAYED RELEASE TAB PO SCH (09:00)
[2017-04-02] MEDS ORDERED: FAMOTIDINE 20 MG/2 ML VIAL ONE (09:04)
[2017-04-02] MEDS ORDERED: ceFAZolin INJ 1,000 MG VIAL IV ONE (10:45)
[2017-04-02] MEDS ORDERED: IOHEXOL 350 MG/ML 50 ML BTL (for RAD DIAG) OTHER ONE (11:24)
--- NOTE | 2017-04-02 12:05 | PD.OP ---
Operative Report Date of Surgery: Apr 02, 2017 Preoperative Diagnosis: Bladder and right ureteral mass with severe right sided hydronephrosis Postoperative Diagnosis: Same Procedure: Cystoscopy with transurethral resection of a bladder tumor with fulguration, right retrograde study, right ureteroscopy with right double-J stent insertion Anesthesia: Gen. Surgeon: Sammy Dejesus Registered Representative(s): None Resident Surgeon: None Operation and Findings: 87-year-old female presented to the [place] emergency room yesterday with right lower quadrant pain and right flank pain. CT findings demonstrated severe right hydronephrosis with a possible ureteral mass on the right and a 3 cm bladder mass. Decision made to bring the patient to the operating room to undergo cystoscopy with possible transurethral resection of a bladder tumor and right ureteroscopy with possible stent insertion. Risk and benefits were discussed and she was willing to proceed. The patient is brought to the operating room and identified by myself as Nohemi Morales. She was placed in the dorsal lithotomy position, prepped and draped in usual sterile fashion, received preprocedure antibiotics, and general anesthesia was administered. 22 [place] cystoscope was inserted in the bladder garcia cystoscopy revealed a large bladder tumor at the right dome region of the bladder. At this point, the 24 [place] resectoscope sheath was inserted into the bladder with the 24 loop. The bladder tumor was then resected and the bed was then fulgurated. The tumor appeared to be approximately 5 cm in diameter. This was resected completely. Attention then was directed to the right ureteral orifice and using the cystoscope and a 5 [place] open ended catheter retrograde study was attempted. Contrast would not pass up into the ureter very far. A 0.35 sensor wire was then passed through the 5 [place] open-ended catheter. The wire was left in place and then the short rigid ureteroscope was then passed along the wire. Approximately 4-5 cm into the distal ureter obstructing mass was identified and this extended for approximately 4-5 cm along the length of the proximal ureter. I was able to pass the rigid ureteroscope beyond the tumor and once beyond the tumor there is no evidence of any tumor into the proximal ureter at the UPJ or in the collecting system. Decision was then made to leave a double-J stent in place. The rigid ureteroscope was removed and the wire was left in place. The cystoscope was backloaded over the wire and then a 22 cm 6 [place] right double-J stent was placed with good curl in the kidney and the bladder. A 20 [place] Ua was inserted completion of the procedure and she was awoken and transferred in stable condition. She tolerated the procedure well. She will need repeat ureteroscopy next month after the ureter has dilated with the stent in position to see if lasering the tumor is a feasible option for resection. This would provide the most conservative treatment given the patient's age and comorbidities. Sammy Dejesus DO Apr 02, 2017 12:05
[2017-04-02] MEDS ORDERED: BELLADONNA ALKALOIDS/OPIUM 60 MG SUPP RECTAL PRN (12:15)
--- NOTE | 2017-04-02 12:38 | MB ---
cc: BETO PERES DATE OF CONSULTATION 04/02/2017 Mrs. Nielsen is a pleasant 87-year-old female who presented to the emergency room with complaints of right lower quadrant abdominal pain. She has been having episodes of nausea without vomiting. She does have some urinary frequency at times but denies any gross hematuria. CT scan was performed in the emergency room which showed severe right-sided hydronephrosis and hydroureter. There appeared to be a 2-mm nonobstructing stone in the midzone of the left kidney but a separate mass was also identified in the bladder measuring 3 cm and a filling defect was noted in the distal 5 cm of the ureter above the UVJ. This was concerning for a urothelial neoplasm involving the bladder and the distal right ureter causing high-grade obstruction. MEDICAL HISTORY 1. Dementia. 2. Recurrent urinary tract infections. 3. Anxiety, depression. 4. Gastroesophageal reflux disease. 5. Hyperlipidemia. 6. Hypertension. 7. Degenerative disk disease. 8. COPD. 9. Coronary artery disease. PAST SURGICAL HISTORY 1. Notable for bladder suspension back in 2002. 2. Cataract surgery. 3. D&C. 4. Coronary angioplasty. 5. Tonsils and adenoids. 6. Total abdominal hysterectomy. MEDICATIONS Please refer to the chart. ALLERGIES She has no known drug allergies. FAMILY HISTORY Noted for atherosclerotic disease and heart disease. SOCIAL HISTORY History of smoking approximately a pack a day for 25 years and quit in 1973. Occasional alcohol. She is currently a . REVIEW OF SYSTEMS She notes fatigue but denies fever, weight loss, night sweats. Denies blurry vision, eye pain. Notes hearing loss. Denies tinnitus or throat pain. Denies shortness of breath. Denies any chest pain at present. Does note abdominal pain with gastroesophageal reflux disease and nausea, no vomiting. No joint pain and chronic low back pain. Denies rashes or lesions. Does note occasional bruising. Denies an abnormal gait. Complains of anxiety and depression. The remaining review of systems were performed and were negative. PHYSICAL EXAMINATION PRESENT VITALS: Temperature is 99, heart rate 75, respiratory 16, 160/81. 98% on room air. GENERAL: She is a well-developed, well-nourished 87-year-old female in no acute distress. HEENT: Normocephalic, atraumatic. Pupils equal round regular, reactive to light. Extraocular movements intact. NECK: Supple. Trachea is midline. CARDIOVASCULAR: Regular rate and rhythm. LUNGS: Clear to auscultation. ABDOMEN: Soft, nondistended. Mild tenderness in the right lower quadrant and the right flank area is noted. EXTREMITIES: No cyanosis, clubbing or edema. NEUROLOGIC: Cranial nerves II-XII intact. SKIN: There are no lesions or rashes. PSYCH: Slightly depressed. LABORATORY VALUES White count 16.5, hemoglobin 12.7, hematocrit 38.9, platelet count 333. Sodium 35, potassium 3.7, chloride 101, CO2 26.4, BUN 25, creatinine 1.2, glucose of 118. Urinalysis shows 0-3 red cells and 9-14 white cells. Urine culture was less than 10,000 CFU, gram-negative kandy. IMAGING STUDIES Again is concerning for bladder mass, approximately 2 cm in size and a distal right ureteral mass up to 5 cm in length with severe hydronephrosis. ASSESSMENT An 87-year-old female with evidence of a bladder mass, severe right-sided hydronephrosis and possible ureteral mass causing obstruction. RECOMMENDATIONS N.p.o. after midnight and recommend cystoscopy, possible transurethral resection of bladder tumor in the a.m. with possible stent placement. The risks and benefits were discussed and she was willing to proceed. Thank you for the consult and allowing me to participate in the care of this patient. Beto SIERRA/ELDA /11:59 AM /12:28 PM
[2017-04-02] MEDS ORDERED: DO NOT ADM ANY ANTICOAGULANT DRUGS PRN (12:45)
--- NOTE | 2017-04-02 16:02 | HHI.PR ---
Subjective Remarks Pt underwent cystoscopy with transurethral resection of a bladder tumor with fulguration, right retrograde study, right ureteroscopy with right double-J stent insertion today with Dr. Dejesus Pt reports that she has been ambulating to the bathroom Au cath in place with hematuria noted Objective Vitals Vital Signs Date Time Temp Pulse Resp B/P (MAP) Pulse Ox O2 Delivery O2 Flow Rate FiO2 04/02/17 13:10 98.4 57 16 140/65 (90) 96 04/02/17 12:45 97.6 70 16 152/67 (95) 94 Nasal Cannula 2 04/02/17 12:30 71 16 154/70 (98) 97 Nasal Cannula 3 04/02/17 12:15 72 15 150/74 (99) 95 Nasal Cannula 3 04/02/17 12:10 97.7 71 14 156/71 (99) 93 Nasal Cannula 3 04/02/17 07:57 99.0 75 16 162/81 (108) 92 04/02/17 04:32 99.1 70 16 159/74 (102) 93 04/02/17 04:09 69 04/02/17 00:09 98.3 64 16 150/63 (92) 94 04/02/17 00:07 60 04/01/17 20:04 64 04/01/17 20:04 98.4 67 18 158/80 (106) 95 04/01/17 17:58 97.8 61 18 163/71 (101) 93 04/01/17 16:22 04/02/17 04/02/17 04/03/17 15:00 23:00 07:00 Intake Total 600 ml Output Total 410 ml Balance 190 ml IV Total 600 ml Output Urine Total 400 ml Estimated Blood Loss 10 ml Result Diagram: 04/02/17 0610 04/02/17 0610 Other Results Laboratory Tests Test 04/01/17 10:35 04/01/17 11:05 04/02/17 06:10 White Blood Count 15.1 TH/MM3 16.5 TH/MM3 Red Blood Count 4.71 MIL/MM3 4.49 MIL/MM3 Hemoglobin 13.2 GM/DL 12.7 GM/DL Hematocrit 39.7 % 38.6 % Mean Corpuscular Volume 84.2 FL 86.0 FL Mean Corpuscular Hemoglobin 28.0 PG 28.3 PG Mean Corpuscular Hemoglobin Concent 33.3 % 32.9 % Red Cell Distribution Width 12.7 % 13.6 % Platelet Count 377 TH/MM3 333 TH/MM3 Mean Platelet Volume 9.3 FL 8.7 FL Neutrophils (%) (Auto) 75.7 % 78.9 % Lymphocytes (%) (Auto) 16.7 % 13.6 % Monocytes (%) (Auto) 5.8 % 7.1 % Eosinophils (%) (Auto) 0.9 % 0.1 % Basophils (%) (Auto) 0.9 % 0.3 % Neutrophils # (Auto) 11.5 TH/MM3 13.0 TH/MM3 Lymphocytes # (Auto) 2.5 TH/MM3 2.2 TH/MM3 Monocytes # (Auto) 0.9 TH/MM3 1.2 TH/MM3 Eosinophils # (Auto) 0.1 TH/MM3 0.0 TH/MM3 Basophils # (Auto) 0.1 TH/MM3 0.0 TH/MM3 CBC Comment DIFF FINAL DIFF FINAL Differential Comment Blood Urea Nitrogen 28 MG/DL 25 MG/DL Creatinine 1.50 MG/DL 1.29 MG/DL Random Glucose 121 MG/DL 118 MG/DL Total Protein 8.3 GM/DL 7.5 GM/DL Albumin 3.4 GM/DL 3.1 GM/DL Calcium Level 9.3 MG/DL 8.5 MG/DL Alkaline Phosphatase 82 U/L 82 U/L Aspartate Amino Transf (AST/SGOT) 24 U/L 13 U/L Alanine Aminotransferase (ALT/SGPT) 22 U/L 18 U/L Total Bilirubin 0.5 MG/DL 0.4 MG/DL Sodium Level 138 MEQ/L 135 MEQ/L Potassium Level 4.4 MEQ/L 3.7 MEQ/L Chloride Level 102 MEQ/L 101 MEQ/L Carbon Dioxide Level 25.7 MEQ/L 26.4 MEQ/L Anion Gap 10 MEQ/L 8 MEQ/L Estimat Glomerular Filtration Rate 33 ML/MIN 39 ML/MIN Lipase 327 U/L Urine Collection Type CLEAN CATCH Urine Color YELLOW Urine Turbidity CLEAR Urine pH 6.0 Urine Specific [place] 1.016 Urine Protein TRACE mg/dL Urine Glucose (UA) NEG mg/dL Urine Ketones NEG mg/dL Urine Occult Blood NEG Urine Nitrite NEG Urine Bilirubin NEG Urine Leukocyte Esterase TRACE Urine RBC 0-3 /hpf Urine WBC 9-14 /hpf Urine Squamous Epithelial Cells 0-5 /hpf Microscopic Urinalysis Comment CULTURE INDICATED Imaging Last 72 hours Impressions Abdomen/Pelvis CT 04/01/17 1038 Signed Impressions: Service Date/Time: Saturday, April 01, 2017 12:10 - CONCLUSION: 1. 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 The latter causes high grade obstruction. 2. Tiny nonobstructing stone of the left kidney. 3. Scattered subcentimeter faint hypodensities of the liver, too small to fully characterize. 4. The fat-containing bilateral inguinal hernias. 5. Atherosclerosis of the abdominal aorta and iliac arteries. No aneurysm. Binu Clark MD Objective Remarks General: NAD, AAOx3 Chest: CTA Cardiac: Regular Abd: +BS, soft ND/NT : Au cath in place with bloody urine ~ 500cc. Ext: No edema A/P Problem List: (1) Ureteral mass ICD Codes: N28.9 - Disorder of kidney and ureter, unspecified Status: Acute Plan: - Pt is an 87 y/o female with hypertension hyperlipidemia, major depression, anxiety and distant history of recurrent UTIs who [place] [facility] [place] flank and right lower abdominal pain with radiation to her right lower back that began around 4 or 5 AM the morning of admission. 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 The latter causes high grade obstruction. Tiny nonobstructing stone of the left kidney. Scattered subcentimeter faint hypodensities of the liver, too small to fully characterize. The fat-containing bilateral inguinal hernias. Atherosclerosis of the abdominal aorta and iliac arteries. No aneurysm. - Pt was transferred to [facility] on 04/01 for Urology evaluation. - Pt underwent cystoscopy with transurethral resection of a bladder tumor with fulguration, right retrograde study, right ureteroscopy with right double-J stent insertion on 04/[address] Dejesus. - Pt with Au cath in place with orders for PRN irrigation and to be removed tomorrow morning at 0600. - Urology has recommended repeat ureteroscopy next month after the ureter has dilated with the stent in position to see if lasering the tumor is a feasible option for resection which is felt to be the most conservative treatment given the patient 's age and comorbidities. - Pt to receive Cefazolin x 3 doses - B&O supp PRN for bladder spasms - Pt is on IVF and has a diet ordered for today - Pain control PRN - Supportive care - PT evaluation in AM to decide about discharge needs - DVT prophylaxis with SCDs (2) BESSY (acute kidney injury) ICD Codes: N17.9 - Acute kidney failure, unspecified Status: Acute Plan: - Pt with acute worsening of her BUN/Cr to 28/1.50 at admission likely secondary to obstructing mass and hydronephrosis - Pt had cystoscopy and stent placement today - Pt receiving IVF - Repeat labs today with Cr 1.29 - Cont. IVF and encourage oral intake. - Repeat labs in AM (3) Hydroureter ICD Codes: N13.4 - Hydroureter Status: Acute Plan: - As above. (4) Bladder mass ICD Codes: N32.89 - Other specified disorders of bladder Status: Acute Plan: - As above (5) Hypertension ICD Codes: I10 - Hypertension Status: Chronic Plan: - Home medication continued - Monitor (6) Hyperlipidemia ICD Codes: E78.5 - Hyperlipidemia, unspecified Status: Chronic Plan: - Home meds continued (7) GERD (gastroesophageal reflux disease) ICD Codes: K21.9 - Gastro-esophageal reflux disease without esophagitis Status: Chronic Plan: - PPI. (8) COPD (chronic obstructive pulmonary disease) ICD Codes: J44.9 - Chronic obstructive pulmonary disease Status: Chronic Plan: - Stable. (9) CAD (coronary artery disease) ICD Codes: I25.10 - Atherosclerotic heart disease of [place] coronary artery without angina pectoris Status: Chronic Plan: - Cont. home meds Assessment and Plan Patient examined. Assessment and plan formulated with Edilma Castro PA-C. I agree with the above. Problem Qualifiers (1) Hypertension: Qualified Codes: I10 - Essential (primary) hypertension Edilma Castro Apr 02, 2017 16:02 Nik Delgado DO Apr 09, 2017 11:35
--- NOTE | 2017-04-02 17:32 | RADRPT ---
EXAM DATE/TIME: 04/02/2017 17:03 [facility] COMPARISON: CHEST SINGLE AP, October 16, 2015, 18:16. INDICATIONS : Leukocytosis. MEDICAL HISTORY : Cardiovascular disease. Gastroesophageal reflux disease. Hypertension.Colitis. SURGICAL HISTORY : Hysterectomy. Coronary artery stent. ENCOUNTER: Initial ACUITY: 4 - 6 days PAIN SCORE: Non-responsive. LOCATION: Bilateral chest FINDINGS: Portable AP view of the chest demonstrates a normal-sized cardiac silhouette with calcification of th e aorta. Lungs are underinflated with atelectasis at the bases. No effusion or pneumothorax is identi fied. Bones and soft tissues demonstrate no acute finding. CONCLUSION: Underinflation with bibasilar opacity most likely representing atelectasis. Otherwise, no acute findi ng is identified. Binu Narvaez MD on April 02, 2017 at 17:29 Board Certified Radiologist. This report was verified electronically.
--- NOTE | 2017-04-02 18:47 | EKG ---
Date Performed: 04/01/2017 Time Performed: 23:13:22 PTAGE: 87 years EKG: Sinus rhythm . Poor R wave progression Low QRS voltages in precordial leads Borderline ECG PREVIOUS TRACING : 10/16/2015 18.16.14 DOCTOR: Jaswinder Zamora Interpretating Date/Time 04/02/2017 18:46:16
[2017-04-02] MEDS: SODIUM CHLORIDE 0.9% FLUSH 10 ML FLUSH IV FLUSH PRN (20:39)
[2017-04-03] VITALS (10 sets, daily range): BP systolic 135–175; BP diastolic 56–84; PULSE 66–77; RESP 16–19; TEMP 97.5–99.5; O2SAT 95–98
[2017-04-03] MEDS: SODIUM CHLOR 0.9% 1000 ML INJ 1,000 ML IV SCH ×2 (00:03→05:50)
[2017-04-03] MEDS: SODIUM CHLORIDE 0.9% FLUSH 10 ML FLUSH IV FLUSH PRN ×2 (04:25→09:07)
[2017-04-03] MEDS: HYDROmorphone HCL PF 1 MG/ML VIAL IV PUSH PRN ×2 (04:25→19:11)
[2017-04-03 06:46] LABS: AUTOMATED NEUTROPHIL # 17.3 TH/MM3 (1.8-7.7); BASOPHIL # 0.1 TH/MM3 (0-0.2); BASOPHIL % 0.3 % (0.0-2.0); HEMO FLAGS DIFF FINAL; LYMPH % 15.5 % (9.0-44.0); LYMPHOCYTE # 3.5 TH/MM3 (1.0-4.8); MEAN CELL VOLUME 86.5 FL (80.0-100.0); MEAN CORPUSCULAR HEMOGLOBIN 28.5 PG (27.0-34.0); MEAN CORPUSCULAR HGB CONC 32.9 % (32.0-36.0); MONO % 7.2 % (0.0-8.0); PLATELET COUNT 318 TH/MM3 (150-450); RED BLOOD COUNT 4.05 MIL/MM3 (4.00-5.30); RED CELL DISTRIBUTION WIDTH 13.4 % (11.6-17.2); WHITE BLOOD COUNT 22.5 TH/MM3 (4.0-11.0)
[2017-04-03 07:12] LABS: BICARBONATE 25.1 MEQ/L (21.0-32.0); MAGNESIUM 2.3 MG/DL (1.5-2.5); POTASSIUM 3.8 MEQ/L (3.5-5.1)
[2017-04-03] MEDS: ATENOLOL 50 MG TAB PO SCH (09:07)
[2017-04-03] MEDS: PANTOPRAZOLE SOD 40 MG DELAYED RELEASE TAB PO SCH (09:07)
[2017-04-03] MEDS: MEMANTINE HCL 10 MG TAB PO SCH (09:07)
[2017-04-03] MEDS: PRAVASTATIN SOD 40 MG TAB PO SCH (09:07)
--- NOTE | 2017-04-03 10:32 | HHI.PR ---
Subjective Patient symptoms today Pt seen and examined. Lombardo out; has yet to void this AM. No pain. Objective Vital Signs Vital Signs Date Time Temp Pulse Resp B/P (MAP) Pulse Ox O2 Delivery O2 Flow Rate FiO2 04/03/17 09:04 98.5 69 16 175/77 (109) 95 04/03/17 04:13 98.9 67 16 152/65 (94) 98 04/03/17 04:12 70 04/03/17 00:08 66 04/03/17 00:07 98.7 69 16 135/56 (82) 98 04/02/17 20:20 99.4 71 16 169/75 (106) 95 04/02/17 20:00 72 04/02/17 15:53 98.3 66 20 163/76 (105) 96 04/02/17 13:10 98.4 57 16 140/65 (90) 96 04/02/17 12:45 97.6 70 16 152/67 (95) 94 Nasal Cannula 2 04/02/17 12:30 71 16 154/70 (98) 97 Nasal Cannula 3 04/02/17 12:15 72 15 150/74 (99) 95 Nasal Cannula 3 04/02/17 12:10 97.7 71 14 156/71 (99) 93 Nasal Cannula 3 Intake & Output 04/03/17 04/03/17 07:00 19:00 Intake Total 300 ml Output Total 275 ml 300 ml Balance 25 ml -300 ml IV Total 300 ml Output Urine Total 275 ml 300 ml Result Diagram: 04/03/17 0559 04/03/1759 Objective Remarks Abd:soft,nt,nd Pending void since lombardo was removed this AM Medications and IVs Current Medications Medications (Trade) Dose Ordered Sig/Noemí Route Start Time Stop Time Status Last Admin (NS Flush) 2 ml UNSCH PRN IV FLUSH 04/01/17 10:45 04/03/17 09:07 (Zofran Inj) 4 mg Q4HR PRN IV PUSH 04/01/17 13:45 04/01/17 15:17 (Tylenol) 650 mg Q4H PRN PO 04/01/17 13:45 (Norvasc) 10 mg DAILY PO 04/02/17 09:00 04/03/17 09:07 (Tenormin) 50 mg DAILY PO 04/02/17 09:00 04/03/17 09:07 (Pravachol) 40 mg DAILY PO 04/02/17 09:00 04/03/17 09:07 Sodium Chloride 1,000 ml @ 100 mls/hr Q10H IV 04/01/17 14:00 04/03/17 00:03 (Protonix) 40 mg DAILY PO 04/02/17 09:00 04/03/17 09:07 (Ativan) 0.5 mg Q8H PRN PO 04/01/17 14:30 04/01/17 17:32 (Namenda) 10 mg DAILY PO 04/02/17 09:00 04/03/17 09:07 (Dilaudid Pf Inj) 1 mg Q3H PRN IV PUSH 04/01/17 18:00 04/03/17 04:25 Lactated Ringer's 1,000 ml @ 30 mls/hr Q24H PRN IV 04/01/17 23:15 04/04/17 23:14 (Betadine 5% Antisepsis Kit) 1 applic COFFEE URN ATTENDANT PRN EACH NARE 04/01/17 23:15 04/04/17 23:14 (Chlorhexidine 2% Cloth) 3 pack COFFEE URN ATTENDANT PRN TOPICAL 04/01/17 23:15 04/04/17 23:14 (B & O Supp) 60 mg Q6HR PRN RECTAL 04/02/17 12:15 Miscellaneous Information ALL NURSING DEPARTME... UNSCH PRN .XX 04/02/17 12:45 04/03/17 12:44 Assessment and Plan Assessment and Plan Stable s/p TURBT with right JJ stent insertion Void trial today Stable from standpoint F/U in the office in a few weeks. Sammy Dejesus DO Apr 03, 2017 10:32
--- NOTE | 2017-04-03 16:15 | HHI.PR ---
Subjective Remarks Pt had Au cath removed this morning and has voided twice She has not had a BM yet but feels that she needs to She is still requiring 2L of supplemental O2 Pt was seen by PT today and recommended for HHC/PT Objective Vitals Vital Signs Date Time Temp Pulse Resp B/P (MAP) Pulse Ox O2 Delivery O2 Flow Rate FiO2 04/03/17 15:05 99.5 71 16 159/71 (100) 97 04/03/17 12:06 97.5 69 16 156/71 (99) 97 04/03/17 09:04 98.5 69 16 175/77 (109) 95 04/03/17 08:00 76 04/03/17 04:13 98.9 67 16 152/65 (94) 98 04/03/17 04:12 70 04/03/17 00:08 66 04/03/17 00:07 98.7 69 16 135/56 (82) 98 04/02/17 20:20 99.4 71 16 169/75 (106) 95 04/02/17 20:00 72 04/03/17 04/03/17 04/04/17 15:00 23:00 07:00 Intake Total 251 ml Output Total 300 ml 300 ml Balance -49 ml -300 ml Intake Oral 150 ml IV Total 101 ml Output Urine Total 300 ml 300 ml Result Diagram: 04/03/1759 04/03/1759 Other Results Laboratory Tests Test 04/02/17 06:10 04/03/17 05:59 White Blood Count 16.5 TH/MM3 22.5 TH/MM3 Red Blood Count 4.49 MIL/MM3 4.05 MIL/MM3 Hemoglobin 12.7 GM/DL 11.5 GM/DL Hematocrit 38.6 % 35.0 % Mean Corpuscular Volume 86.0 FL 86.5 FL Mean Corpuscular Hemoglobin 28.3 PG 28.5 PG Mean Corpuscular Hemoglobin Concent 32.9 % 32.9 % Red Cell Distribution Width 13.6 % 13.4 % Platelet Count 333 TH/MM3 318 TH/MM3 Mean Platelet Volume 8.7 FL 8.9 FL Neutrophils (%) (Auto) 78.9 % 77.0 % Lymphocytes (%) (Auto) 13.6 % 15.5 % Monocytes (%) (Auto) 7.1 % 7.2 % Eosinophils (%) (Auto) 0.1 % 0.0 % Basophils (%) (Auto) 0.3 % 0.3 % Neutrophils # (Auto) 13.0 TH/MM3 17.3 TH/MM3 Lymphocytes # (Auto) 2.2 TH/MM3 3.5 TH/MM3 Monocytes # (Auto) 1.2 TH/MM3 1.6 TH/MM3 Eosinophils # (Auto) 0.0 TH/MM3 0.0 TH/MM3 Basophils # (Auto) 0.0 TH/MM3 0.1 TH/MM3 CBC Comment DIFF FINAL DIFF FINAL Differential Comment Blood Urea Nitrogen 25 MG/DL 21 MG/DL Creatinine 1.29 MG/DL 1.18 MG/DL Random Glucose 118 MG/DL 98 MG/DL Total Protein 7.5 GM/DL Albumin 3.1 GM/DL Calcium Level 8.5 MG/DL 8.4 MG/DL Alkaline Phosphatase 82 U/L Aspartate Amino Transf (AST/SGOT) 13 U/L Alanine Aminotransferase (ALT/SGPT) 18 U/L Total Bilirubin 0.4 MG/DL Sodium Level 135 MEQ/L 139 MEQ/L Potassium Level 3.7 MEQ/L 3.8 MEQ/L Chloride Level 101 MEQ/L 105 MEQ/L Carbon Dioxide Level 26.4 MEQ/L 25.1 MEQ/L Anion Gap 8 MEQ/L 9 MEQ/L Estimat Glomerular Filtration Rate 39 ML/MIN 44 ML/MIN Magnesium Level 2.3 MG/DL Imaging Last Impressions Chest X-Ray 04/02/17 0000 Signed Impressions: Service Date/Time: Sunday, April 02, 2017 17:03 - CONCLUSION: Underinflation with bibasilar opacity most likely representing atelectasis. Otherwise, no acute finding is identified. Binu Narvaez MD Abdomen/Pelvis CT 04/01/17 1038 Signed Impressions: Service Date/Time: Saturday, April 01, 2017 12:10 - CONCLUSION: 1. 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 The latter causes high grade obstruction. 2. Tiny nonobstructing stone of the left kidney. 3. Scattered subcentimeter faint hypodensities of the liver, too small to fully characterize. 4. The fat-containing bilateral inguinal hernias. 5. Atherosclerosis of the abdominal aorta and iliac arteries. No aneurysm. Binu Clark MD Last 72 hours Impressions Abdomen/Pelvis CT 04/01/17 1038 Signed Impressions: Service Date/Time: Saturday, April 01, 2017 12:10 - CONCLUSION: 1. 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 The latter causes high grade obstruction. 2. Tiny nonobstructing stone of the left kidney. 3. Scattered subcentimeter faint hypodensities of the liver, too small to fully characterize. 4. The fat-containing bilateral inguinal hernias. 5. Atherosclerosis of the abdominal aorta and iliac arteries. No aneurysm. Binu Clark MD Objective Remarks General: NAD, AAOx3 Chest: CTA Cardiac: Regular Abd: +BS, soft ND/NT Ext: No edema A/P Problem List: (1) Ureteral mass ICD Codes: N28.9 - Disorder of kidney and ureter, unspecified Status: Acute Plan: - Pt is an 87 y/o female with hypertension hyperlipidemia, major depression, anxiety and distant history of recurrent UTIs who presented to [facility] with right flank and right lower abdominal pain with radiation to her right lower back that began around 4 or 5 AM the morning of admission. 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 The latter causes high grade obstruction. Tiny nonobstructing stone of the left kidney. Scattered subcentimeter faint hypodensities of the liver, too small to fully characterize. The fat-containing bilateral inguinal hernias. Atherosclerosis of the abdominal aorta and iliac arteries. No aneurysm. - Pt was transferred to [facility] on 04/01 for Urology evaluation. - Pt underwent cystoscopy with transurethral resection of a bladder tumor with fulguration, right retrograde study, right ureteroscopy with right double-J stent insertion on 04/[address] Dejesus. - Urology has recommended repeat ureteroscopy next month after the ureter has dilated with the stent in position to see if lasering the tumor is a feasible option for resection which is felt to be the most conservative treatment given the patient 's age and comorbidities. - Pt received Cefazolin x 3 doses - B&O supp PRN for bladder spasms - Pt had Au cath removed this morning and has voided twice. - She is still requiring supplemental O2 - Stop IVF - CXR on 04/02 with atelectasis noted - IS - Try to wean off O2 tonight - Encourage OOB to chair - Pain control PRN - Supportive care - PT recommending HHC/PT - Anticipate discharge home tomorrow - DVT prophylaxis with SCDs (2) BESSY (acute kidney injury) ICD Codes: N17.9 - Acute kidney failure, unspecified Status: Acute Plan: - Pt with acute worsening of her BUN/Cr to 28/1.50 at admission likely secondary to obstructing mass and hydronephrosis - Pt had cystoscopy and stent placement today - Pt had been receiving IVF - Repeat labs on 04/03 with Cr 1.18 - Stop IVF - Encourage oral intake - Repeat labs in AM (3) Hydroureter ICD Codes: N13.4 - Hydroureter Status: Acute Plan: - As above. (4) Bladder mass ICD Codes: N32.89 - Other specified disorders of bladder Status: Acute Plan: - As above (5) Hypertension ICD Codes: I10 - Hypertension Status: Chronic Plan: - Home medication continued - Monitor (6) Hyperlipidemia ICD Codes: E78.5 - Hyperlipidemia, unspecified Status: Chronic Plan: - Home meds continued (7) GERD (gastroesophageal reflux disease) ICD Codes: K21.9 - Gastro-esophageal reflux disease without esophagitis Status: Chronic Plan: - PPI. (8) COPD (chronic obstructive pulmonary disease) ICD Codes: J44.9 - Chronic obstructive pulmonary disease Status: Chronic Plan: - Stable. (9) CAD (coronary artery disease) ICD Codes: I25.10 - Atherosclerotic heart disease of [place] coronary artery without angina pectoris Status: Chronic Plan: - Cont. home meds Assessment and Plan Patient examined. Assessment and plan formulated with Edilma Castro PA-C. I agree with the above. Problem Qualifiers (1) Hypertension: Qualified Codes: I10 - Essential (primary) hypertension Edilma Castro Apr 03, 2017 16:15 Nik Delgado DO Apr 09, 2017 11:35
--- NOTE | 2017-04-03 16:15 | HHI.FF ---
Face to Face Verification Diagnosis: (1) COPD (chronic obstructive pulmonary disease) with acute bronchitis (2) Ureteral mass (3) Bladder mass (4) Hydroureter (5) Hydronephrosis Physical Therapy Order: Evaluate and Treat, Improve ambulation, Strength and gait training Home Health Nursing Order: Medical education Signs/symptoms of disease process Medication education-adverse effect Nursing assessment with vital signs I have seen patient Nohemi Nielsen on 04/03/17. My clinical findings support the need for the requested home health care services because: Ltd mobility - disease progression Deconditioned w/ increased weakness Med compliance is questionable Limited ability to care for self Need for psychosocial assistance I certify that my clinical findings support that this patient is homebound because: Impaired cognitive ability/safety Unsafe to leave home unassisted Need for psychosocial assistance Unable to use public transportation Nik Delgado DO Apr 03, 2017 16:15
[2017-04-03] MEDS ORDERED: MAGNESIUM HYDROXIDE SUSP 30 ML CUP PO PRN (16:30)
[2017-04-03] MEDS: DOCUSATE SODIUM 100 MG CAP PO SCH (21:55)
[2017-04-04] VITALS (7 sets, daily range): BP systolic 162–174; BP diastolic 78–92; PULSE 75–82; RESP 16; TEMP 98.1–99.6; O2SAT 92–96
[2017-04-04] MEDS: HYDROmorphone HCL PF 1 MG/ML VIAL IV PUSH PRN ×2 (05:01→09:24)
--- NOTE | 2017-04-04 05:42 | RADRPT ---
EXAM DATE/TIME: 04/04/2017 04:10 [facility] COMPARISON: CHEST SINGLE AP, April 02, 2017, 17:03. INDICATIONS : Shortness of breath. MEDICAL HISTORY : Cardiovascular disease. Gastroesophageal reflux disease. SURGICAL HISTORY : Coronary artery stent. ENCOUNTER: Subsequent ACUITY: 2 days PAIN SCORE: 0/10 LOCATION: Bilateral chest FINDINGS: Mild bibasilar consolidation and very small pleural effusions present, both side slightly worse in th e interim. No pneumothorax demonstrated. Heart size stable, but limits of normal. CONCLUSION: Trace atelectasis and very small pleural effusions at both lung bases slightly worse. Binu Clark MD on April 04, 2017 at 5:40 Board Certified Radiologist. This report was verified electronically.
[2017-04-04 06:24] LABS: BICARBONATE 25.1 MEQ/L (21.0-32.0); POTASSIUM 3.3 MEQ/L (3.5-5.1)
[2017-04-04] MEDS ORDERED: POTASSIUM CHLORIDE 20 MEQ CONTROLLED RELEASE TAB PO ONE (08:30)
--- NOTE | 2017-04-04 09:01 | HHI.PR ---
Subjective Remarks eager for d/c lying in bed Objective Vitals heart reg lung cta abd s/nt ext no edema Vital Signs Date Time Temp Pulse Resp B/P (MAP) Pulse Ox O2 Delivery O2 Flow Rate FiO2 04/04/17 04:00 98.2 82 16 174/78 (110) 96 04/04/17 00:11 95 Nasal Cannula 1.00 04/04/17 00:00 98.1 77 16 162/92 (115) 95 04/03/17 21:00 77 04/03/17 20:00 98.8 73 19 163/84 (110) 98 04/03/17 15:05 99.5 71 16 159/71 (100) 97 04/03/17 12:06 97.5 69 16 156/71 (99) 97 04/03/17 09:04 98.5 69 16 175/77 (109) 95 Result Diagram: 04/03/17 0559 04/04/17 0519 Imaging Last Impressions Chest X-Ray 04/02/17 0000 Signed Impressions: Service Date/Time: Sunday, April 02, 2017 17:03 - CONCLUSION: Underinflation with bibasilar opacity most likely representing atelectasis. Otherwise, no acute finding is identified. Binu Narvaez MD Abdomen/Pelvis CT 04/01/17 1038 Signed Impressions: Service Date/Time: Saturday, April 01, 2017 12:10 - CONCLUSION: 1. 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 The latter causes high grade obstruction. 2. Tiny nonobstructing stone of the left kidney. 3. Scattered subcentimeter faint hypodensities of the liver, too small to fully characterize. 4. The fat-containing bilateral inguinal hernias. 5. Atherosclerosis of the abdominal aorta and iliac arteries. No aneurysm. Binu Clark MD Last 72 hours Impressions Abdomen/Pelvis CT 04/01/17 1038 Signed Impressions: Service Date/Time: Saturday, April 01, 2017 12:10 - CONCLUSION: 1. 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 The latter causes high grade obstruction. 2. Tiny nonobstructing stone of the left kidney. 3. Scattered subcentimeter faint hypodensities of the liver, too small to fully characterize. 4. The fat-containing bilateral inguinal hernias. 5. Atherosclerosis of the abdominal aorta and iliac arteries. No aneurysm. Binu Clark MD A/P Problem List: (1) Ureteral mass ICD Codes: N28.9 - Disorder of kidney and ureter, unspecified Status: Acute Plan: - Pt is an 87 y/o female with hypertension hyperlipidemia, major depression, anxiety and distant history of recurrent UTIs who presented [place] [facility] [place] right flank and right lower abdominal pain with radiation to her right lower back that began around 4 or 5 AM the morning of admission. 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 The latter causes high grade obstruction. Tiny nonobstructing stone of the left kidney. Scattered subcentimeter faint hypodensities of the liver, too small to fully characterize. The fat-containing bilateral inguinal hernias. Atherosclerosis of the abdominal aorta and iliac arteries. No aneurysm. - Pt was transferred to [facility] on 04/01 for Urology evaluation. - Pt underwent cystoscopy with transurethral resection of a bladder tumor with fulguration, right retrograde study, right ureteroscopy with right double-J stent insertion on 04/[address] Dejesus. - Urology has recommended repeat ureteroscopy next month after the ureter has dilated with the stent in position to see if lasering the tumor is a feasible option for resection which is felt to be the most conservative treatment given the patient 's age and comorbidities. - Pt received Cefazolin x 3 doses - B&O supp PRN for bladder spasms - Pt had Au cath removed and has voided twice. - She is still requiring supplemental O2 - CXR on 04/02 with atelectasis noted - IS remove o2 and ambulate to see if maintains sats...plan for d/c today and urology f/u. (2) BESSY (acute kidney injury) ICD Codes: N17.9 - Acute kidney failure, unspecified Status: Acute Plan: - Pt with acute worsening of her BUN/Cr to 28/1.50 at admission likely secondary to obstructing mass and hydronephrosis - Pt had cystoscopy and stent placement today - Pt had been receiving IVF - Repeat labs on 04/03 with Cr 1.18 - (3) Hydroureter ICD Codes: N13.4 - Hydroureter Status: Acute Plan: - As above. (4) Bladder mass ICD Codes: N32.89 - Other specified disorders of bladder Status: Acute Plan: - As above (5) Hypertension ICD Codes: I10 - Hypertension Status: Chronic Plan: - Home medication continued - Monitor (6) Hyperlipidemia ICD Codes: E78.5 - Hyperlipidemia, unspecified Status: Chronic Plan: - Home meds continued (7) GERD (gastroesophageal reflux disease) ICD Codes: K21.9 - Gastro-esophageal reflux disease without esophagitis Status: Chronic Plan: - PPI. (8) COPD (chronic obstructive pulmonary disease) ICD Codes: J44.9 - Chronic obstructive pulmonary disease Status: Chronic Plan: - Stable. (9) CAD (coronary artery disease) ICD Codes: I25.10 - Atherosclerotic heart disease of [place] coronary artery without angina pectoris Status: Chronic Plan: - Cont. home meds Problem Qualifiers (1) Hypertension: Qualified Codes: I10 - Essential (primary) hypertension Mayur Ling MD Apr 04, 2017 09:01
--- NOTE | 2017-04-04 09:04 | HHI.FF ---
Face to Face Verification Diagnosis: (1) Bladder mass (2) Ureteral mass Physical Therapy Order: Evaluate and Treat, Improve ambulation Home Health Nursing Order: Medical education Signs/symptoms of disease process Nursing assessment with vital signs I have seen patient Nohemi Nielsen on 04/04/17. My clinical findings support the need for the requested home health care services because: Limited ability to care for self I certify that my clinical findings support that this patient is homebound because: Need for psychosocial assistance Mayur Ling MD Apr 04, 2017 09:04
[2017-04-04] MEDS: DOCUSATE SODIUM 100 MG CAP PO SCH (09:16)
[2017-04-04] MEDS: ATENOLOL 50 MG TAB PO SCH (09:16)
[2017-04-04] MEDS: PANTOPRAZOLE SOD 40 MG DELAYED RELEASE TAB PO SCH (09:16)
[2017-04-04] MEDS: PRAVASTATIN SOD 40 MG TAB PO SCH (09:17)
[2017-04-04] MEDS: MEMANTINE HCL 10 MG TAB PO SCH (09:17)
[2017-04-04] MEDS ORDERED: HYDR-3288 PO (13:21)
[2017-04-07] MEDS ORDERED: CO Q10CA PO (11:06)
== END 2017-04-04 18:04 | disposition home health service (06) | DRG 669 ==
LOC: PHED 09:48 → PHEDA 13:27 → HCIN 16:46
PROVIDERS: ADMIT Hospitalist; ATTEND Hospitalist
PROC: 0T5B8ZZ Destruction of Bladder, Via Natural or Artificial Opening Endoscopic (ICD-10-PCS; 2017-04-02)
PROC: 0T768DZ Dilation of Right Ureter with Intraluminal Device, Via Natural or Artificial Opening Endoscopic (ICD-10-PCS; 2017-04-02)
PROC: 0TBB8ZZ Excision of Bladder, Via Natural or Artificial Opening Endoscopic (ICD-10-PCS; principal; 2017-04-02 10:10)
DX: D41.4 Neoplasm of uncertain behavior of bladder (principal); N13.1 Hydronephrosis with ureteral stricture, not elsewhere classified; N17.9 Acute kidney failure, unspecified; F33.9 Major depressive disorder, recurrent, unspecified; G62.9 Polyneuropathy, unspecified; J98.11 Atelectasis; D41.21 Neoplasm of uncertain behavior of right ureter; J44.9 Chronic obstructive pulmonary disease, unspecified; K21.9 Gastro-esophageal reflux disease without esophagitis; E78.5 Hyperlipidemia, unspecified; I25.10 Atherosclerotic heart disease of native coronary artery without angina pectoris; I12.9 Hypertensive chronic kidney disease with stage 1 through stage 4 chronic kidney disease, or unspecified chronic kidney disease; N18.2 Chronic kidney disease, stage 2 (mild); K40.20 Bilateral inguinal hernia, without obstruction or gangrene, not specified as recurrent; I70.0 Atherosclerosis of aorta; M51.36 Other intervertebral disc degeneration, lumbar region; F03.90 Unspecified dementia, unspecified severity, without behavioral disturbance, psychotic disturbance, mood disturbance, and anxiety; K76.9 Liver disease, unspecified; I70.8 Atherosclerosis of other arteries; F41.9 Anxiety disorder, unspecified; Z87.891 Personal history of nicotine dependence; Z95.5 Presence of coronary angioplasty implant and graft
CPT/HCPCS: 71010; 74177; 80048; 80053; 81001; 83690; 83735; 85025; 87086; 88307; 93005; 96374; 96375; 96376; J1170; J0690; J2270; J2405; J7030; Q9967

== ENCOUNTER → 2017-05-31 | Day surgery (SDC) | payer MEDICARE ==
[~2017-05-31] VITALS: Ht 149.9 cm; Wt 63.8 kg
[~2017-05-31] MED LIST changes: +*morphine SULFATE 4 MG/ML PERIprocedure ONLY ONE; -ALBU17I INH; -ALPR.25 PO; -AMLO10 PO; +AMLO10TA2 PO; +AMPICILLIN 1 GM/NS 100 ML IV SCH; +ASPI-516 CHEW; -ASPI81 PO; -ATEN50 PO; +ATEN50TA PO; -ATRO17AE INH; +BELLADONNA ALKALOIDS/OPIUM 60 MG SUPP RECTAL PRN; +CALC1TAB87 PO; -CALC600T34 PO; +CHLORHEXIDINE GLUCONATE 2 % 1 PACK (2 CLOTHS) TOPICAL PRN; -CITA40 PO; -CO Q 10 PO; +CO Q10CA PO; +CRANCAP2 PO; +DEXAMETHASONE SOD PHOS 4 MG/ML VIAL IV ONE; +DO NOT ADM ANY ANTICOAGULANT DRUGS PRN; -FISH1000 PO; -FLUTI110I INH; +GENTAMICIN INJ 180 MG in SODIUM CHLORIDE 0.9% INJ 100 ML IV SCH; +GLYCOPYRROLATE 1 MG/5 ML SYRINGE IV PUSH ONE; +HYDR-3288 PO; +LACTATED RINGER'S 1000 ML INJ 1,000 ML IV ONE; +LACTATED RINGER'S 1000 ML IV PRN; +LIDOCAINE HCL 1% PF 5 ML SYRINGE OTHER ONE; -LORTA5 PO; -LOSA50 PO; +LOSA50TA PO; -MECL25 PO; +METOPROLOL TARTRATE 25 MG TAB PO PRN; +MORPHINE SULFATE 2 MG/ML INJ IV PRN; +MULTTAB67 PO; +NAME10TA PO; +NEOSTIGMINE 5 MG/5 ML SYRINGE IV PUSH ONE; +OMEGCAP PO; -OMEP20TA39 PO; +ONDANSETRON HCL 4 MG/2 ML VIAL IV ONE; +ONDANSETRON HCL 4 MG/2 ML VIAL IV PUSH PRN; +PHENYLEPH/NS 1000 MCG/10 ML SYR IV ONE; +POVIDONE IODINE 5% (ANTISEPSIS KIT) 4 APPLICATIONS EACH NARE PRN; -PRAV40 PO; +PRAV40TA2 PO; +PROPOFOL 200 MG/20 ML AMP IV ONE; +ROCURONIUM INJ 50 MG/5 ML SYRINGE IV PUSH ONE; +SODIUM CHLORID 0.9% 500 ML IV PRN; +SUGAMMADEX SODIUM 200 MG/2 ML VIAL IV PUSH ONE; -TAB-TAB PO; -VITA100T15 PO; +ePHEDrine/NS 25 MG/5 ML SYRINGE IV ONE; +oxyCODONE/ACETAMINOPHEN 5 MG/325 MG TAB PO PRN
[2017-05-31 09:05] LABS: AUTOMATED NEUTROPHIL # 8.9 TH/MM3 (1.8-7.7); BASOPHIL # 0.1 TH/MM3 (0-0.2); BASOPHIL % 0.8 % (0.0-2.0); EOSINOPHIL # 0.3 TH/MM3 (0-0.4); EOSINOPHIL % 2.1 % (0.0-4.0); HEMATOCRIT 40.9 % (35.0-46.0); HEMOGLOBIN 13.4 GM/DL (11.6-15.3); LYMPH % 26.1 % (9.0-44.0); LYMPHOCYTE # 3.7 TH/MM3 (1.0-4.8); MEAN CELL VOLUME 85.7 FL (80.0-100.0); MEAN CORPUSCULAR HGB CONC 32.7 % (32.0-36.0); MEAN PLATELET VOLUME 9.6 FL (7.0-11.0); MONO % 7.5 % (0.0-8.0); MONOCYTE # 1.1 TH/MM3 (0-0.9); NEUT % 63.5 % (16.0-70.0); PLATELET COUNT 267 TH/MM3 (150-450); RED BLOOD COUNT 4.77 MIL/MM3 (4.00-5.30); RED CELL DISTRIBUTION WIDTH 14.3 % (11.6-17.2); WHITE BLOOD COUNT 14.1 TH/MM3 (4.0-11.0)
--- NOTE | 2017-05-31 12:15 | PD.OP ---
Operative Report Date of Surgery: May 31, 2017 Preoperative Diagnosis: Right ureteral mass with history of right hydronephrosis and low-grade transitional cell carcinoma the bladder Postoperative Diagnosis: Same Procedure: Cystoscopy with right retrograde study; right ureteroscopy with laser of right ureteral tumor with biopsy and right double-J stent exchange Surgeon: Sammy Dejesus Account Executive Sales Representative(s): None Resident Surgeon: None Operation and Findings: 87-year-old female with recent diagnosis of low-grade noninvasive bladder cancer status post TURBT last month. Patient also presented with right hydronephrosis and findings of a ureteral mass in the lower one third ureter who underwent stent placement at the time of TURBT. Decision made to bring the patient back to the operating room to undergo right ureteroscopy and biopsy of the ureteral mass with possible laser. Risk and benefits were discussed preoperatively and she is willing to proceed. The patient was brought to the operating room and identified by myself as Nohemi Nielsen. She is placed in the dorsal lithotomy position, prepped and draped in usual sterile fashion, received preprocedure antibiotics and general endotracheal tube anesthesia was administered. 22 Croatian cystoscope was inserted into the bladder and the prior resection sites at the right dome and area just before the right ureteral orifice were clearly tumor. The alligator grasper was then used to grab the stent and bring it to the urethral meatus. A 0.35 sensor wire was then passed through the open-ended catheter but would only pass midway up the ureter. This was removed and then an open-ended catheter was inserted into the distal ureteral orifice and retrograde pyelogram was performed. Filling of the lower ureter was noted but contrast would not pass up the ureter. The 0.35 sensor wire was then again attempted to pass up the ureter but this was not successful. An angled Glidewire was then attempted but this would only go up mcfp. Leaving the Glidewire in position the rigid ureteroscope was then advanced along the wire. It was apparent that the wire was outside of the ureter. A retrograde was shot through the use scope confirming position. The use scope was brought back down to the lower ureter and then the correct pathway of the ureter was identified. A retrograde was then performed again to confirm correct position of the U scope. The 0.35 sensor wire was then passed through the U scope up into the kidney with a good curl and left in position. The wire was then secured. The scope was then passed along the wire and tumor was visualized from the lower third ureter up to the area of the SI joint. This was approximately 4-5 cm in length. Using a 200 laser fiber the tumor was lasered and biopsied and the specimen was then sent to pathology. The tumor was too long to consider laser therapy as a possible option. A 22 Croatian Bard termite exterminator helper stent was placed over the wire with a good curl in the kidney and bladder. The bladder was evacuated and she was awoken and transferred to recovery in stable condition. She tolerated the procedure well. She will return to clinic in a few weeks to discuss possible treatment options. She will need medical clearance before proceeding with a right nephroureterectomy if this is to be a consideration. Sammy Dejesus DO May 31, 2017 12:15
[2017-05-31 14:25] VITALS: BP 160/67; PULSE 60; RESP 18; TEMP 98.7; O2SAT 96
== END | disposition home or self-care (01) ==
LOC: HSDC 07:56
PROVIDERS: ATTEND Urology
DX: C67.9 Malignant neoplasm of bladder, unspecified (principal); N13.30 Unspecified hydronephrosis; I10 Essential (primary) hypertension
CPT/HCPCS: 00912; 52332; 52354; 74420; 85025; 88305; C1769; J0290; J1100; J1580; J2270; J2370; J2405; J2710; J3010; J7120